=== PATIENT | female | born 1965 | race Caucasian/White ===

== ENCOUNTER 2017-04-24 11:07 | Inpatient (IN) ==
[2017-04-24 11:41] LABS: Basophils # 0.1 10*3/uL (0.0-0.2); Basophils % 0.4 % (0.0-0.8); Eosinophils # 0.1 10*3/uL (0.0-0.87); Eosinophils % 0.7 % (0.00-10.9); Hematocrit 24.5 VOL% (35.7-47.0); Hemoglobin 7.8 GM/DL (12.0-16.0); Immature Granulocytes % 0.4 %; Immature Granulocytes Absolute 0.05 #; Lymphocytes % 8.3 % (21.3-54.2); Mean Corpuscular HGB Conc 31.8 GM/DL (32-36); Mean Corpuscular Hemoglobin 27 PG (27-34); Mean Corpuscular Volume 83.3 FL (87-102); Mean Platelet Volume 10.3 FL (9.6-12.0); Monocytes # 0.8 10*3/uL (0.11-0.8); Monocytes % 6.6 % (1.7-12.7); Neutrophils # 9.7 10*3/uL (1.4-7.4); Neutrophils % 83.6 % (38.7-73.9); Platelet Count 110 T/CUMM (130-400); Red Blood Count 2.94 MC/CUMM (3.8-5.5); Red Cell Distribution Width 17.5 % (9.3-17.3); White Blood Count 11.6 T/CUMM (4-12)
[2017-04-24 12:08] LABS: Blood Urea Nitrogen 34 MG/DL (7-18); Calcium 7.5 MG/DL (8.5-10.1); Glucose 164 MG/DL (74-106); Osmolality,Calculated 294.1 MOS/KG (273-304); Potassium 4.1 MMOL/L (3.5-5.1); Sodium 142 MMOL/L (136-145); Troponin I Only < 0.015 NG/ML (0.00-0.045)
[2017-04-24] MEDS ORDERED: SODIUM CHLORIDE 0.9% 250 ML IV PRN (14:11)
[2017-04-24] MEDS ORDERED: MORPHINE 2 MG/1 ML SYRINGE IV PRN (14:13)
[2017-04-24] MEDS ORDERED: ONDANSETRON 4 MG/2 ML VIAL IV PRN (14:13)
[2017-04-24 14:39] LABS: Hematocrit 24.7 VOL% (35.7-47.0); Hemoglobin 7.7 GM/DL (12.0-16.0)
[2017-04-24] MEDS: SODIUM CHLORIDE 0.9% 1,000 ML IV SCH ×2 (14:52→21:09)
[2017-04-24] MEDS ORDERED: LIDOCAINE 1% 5 ML VIAL ONE (15:03)
[2017-04-24] MEDS ORDERED: PROPOFOL 200 MG/20 ML VIAL IV ONE (15:03)
[2017-04-24] MEDS: PANTOPRAZOLE INJ 200 MG in SODIUM CHLORIDE 0.9% 250 ML IV SCH (21:07)
[2017-04-25 00:43] LABS: Hematocrit 27.7 VOL% (35.7-47.0); Hemoglobin 8.9 GM/DL (12.0-16.0)
[2017-04-25 06:51] LABS: Hemoglobin 9.5 GM/DL (12.0-16.0)
[2017-04-25] MEDS: SODIUM CHLORIDE 0.9% 1,000 ML IV SCH ×3 (07:40→13:57)
[2017-04-25] MEDS ORDERED: DEXTROSE 50% 25 GM/50 ML VIAL IV PRN (13:00)
[2017-04-25] MEDS ORDERED: GLUCAGON 1 MG VIAL IM PRN (13:00)
[2017-04-25] MEDS: PANTOPRAZOLE INJ 200 MG in SODIUM CHLORIDE 0.9% 250 ML IV SCH (15:45)
[2017-04-25] MEDS ORDERED: HYDROmorphone 2 MG/1 ML VIAL IV PRN (15:48)
[2017-04-25] MEDS ORDERED: ceFAZolin 1,000 MG VIAL ONE (15:55)
[2017-04-25] MEDS ORDERED: SODIUM CHLORIDE 0.9% 100 ML IV ONE (15:56)
[2017-04-25] MEDS ORDERED: ceFAZolin 1,000 MG VIAL IM SCH (16:00)
[2017-04-25] MEDS: ceFAZolin 1,000 MG VIAL IV SCH (16:03)
[2017-04-25] MEDS: INSULIN LISPRO 100 UNIT/ML SUBCUT SCH ×2 (16:20→21:27)
[2017-04-25 16:25] LABS: Hematocrit 27.3 VOL% (35.7-47.0); Hemoglobin 8.8 GM/DL (12.0-16.0)
[2017-04-25] MEDS: OCTREOTIDE 1,250 MCG in SODIUM CHLORIDE 0.9% 247.5 ML IV SCH (16:25)
[2017-04-25 17:01] LABS: Hepatitis A Ab IgM Quant 0.03 Index; Hepatitis A Ab IgM Result Negative (Negative); Hepatitis B Core IgM Quant 0.16 Index; Hepatitis B Core IgM Result Negative (Negative); Hepatitis B Surface Ag Quant < 0.10 Index; Hepatitis B Surface Ag Result Negative (Negative); Hepatitis C Virus Ab Quant 0.25 Index; Hepatitis C Virus Ab Result Negative (Negative)
[2017-04-25 17:25] LABS: Albumin 2.8 G/DL (3.4-5.0); Bilirubin,Direct 0.22 MG/DL (0.0-0.20); Bilirubin,Indirect 0.8 MG/DL (0.0-1.0); Total Protein 6.2 G/DL (6.4-8.3)
[2017-04-25] MEDS: PANTOPRAZOLE 40 MG VIAL IV SCH (21:26)
[2017-04-25] MEDS: ATORVASTATIN 40 MG TABLET PO SCH (21:26)
[2017-04-26 00:05] LABS: Hemoglobin 8.6 GM/DL (12.0-16.0)
[2017-04-26] MEDS ORDERED: SODIUM CHLORIDE 0.9% 50 ML IV ONE (00:49)
[2017-04-26] MEDS: SODIUM CHLORIDE 0.9% 1,000 ML IV SCH ×4 (00:53→18:18)
[2017-04-26] MEDS: ceFAZolin 1,000 MG VIAL IV SCH (00:54)
[2017-04-26 04:42] LABS: Albumin 2.8 G/DL (3.4-5.0); Bilirubin,Direct 0.2 MG/DL (0.0-0.20); Bilirubin,Indirect 0.7 MG/DL (0.0-1.0); Bilirubin,Total 0.9 MG/DL (0.2-1.0); Total Protein 6.2 G/DL (6.4-8.3)
[2017-04-26 08:00] LABS: Basophils % 0.6 % (0.0-0.8); Eosinophils # 0.1 10*3/uL (0.0-0.87); Eosinophils % 1.7 % (0.00-10.9); Hematocrit 28.4 VOL% (35.7-47.0); Immature Granulocytes % 0.6 %; Immature Granulocytes Absolute 0.03 #; Lymphocytes # 0.8 10*3/uL (1.4-4.0); Lymphocytes % 15.3 % (21.3-54.2); Mean Corpuscular HGB Conc 31.7 GM/DL (32-36); Mean Corpuscular Hemoglobin 27 PG (27-34); Mean Corpuscular Volume 85.3 FL (87-102); Mean Platelet Volume 10.1 FL (9.6-12.0); Monocytes # 0.3 10*3/uL (0.11-0.8); Monocytes % 5.9 % (1.7-12.7); Neutrophils # 4.1 10*3/uL (1.4-7.4); Neutrophils % 75.9 % (38.7-73.9); Platelet Count 79 T/CUMM (130-400); Red Blood Count 3.33 MC/CUMM (3.8-5.5); White Blood Count 5.4 T/CUMM (4-12)
[2017-04-26 08:23] LABS: Calcium 8.1 MG/DL (8.5-10.1); Osmolality,Calculated 283.5 MOS/KG (273-304); Potassium 4.7 MMOL/L (3.5-5.1)
[2017-04-26 08:25] LABS: Hypochromasia Slight; Macrocytosis 1+; Platelet Estimate Decreased
[2017-04-26] MEDS: INSULIN LISPRO 100 UNIT/ML SUBCUT SCH ×4 (08:28→21:10)
[2017-04-26] MEDS: PANTOPRAZOLE 40 MG VIAL IV SCH ×2 (08:40→20:31)
[2017-04-26] MEDS: METOPROLOL SUCCINATE XL 25 MG TABLET PO SCH (08:40)
[2017-04-26] MEDS: LOSARTAN 25 MG TABLET PO SCH (08:40)
[2017-04-26 09:35] LABS: INR 1.1; PT Patient Result 11.4 SECS; Partial Thromboplastin Time 25.7 SECS (0-40)
[2017-04-26 16:27] LABS: Hematocrit 28.7 VOL% (35.7-47.0)
[2017-04-26] MEDS: OCTREOTIDE 1,250 MCG in SODIUM CHLORIDE 0.9% 247.5 ML IV SCH (16:51)
[2017-04-26] MEDS: ATORVASTATIN 40 MG TABLET PO SCH (20:31)
[2017-04-27 00:46] LABS: Basophils % 0.4 % (0.0-0.8); Eosinophils # 0.1 10*3/uL (0.0-0.87); Eosinophils % 2.8 % (0.00-10.9); Hematocrit 25.2 VOL% (35.7-47.0); Hemoglobin 8.1 GM/DL (12.0-16.0); Immature Granulocytes % 0.4 %; Immature Granulocytes Absolute 0.02 #; Lymphocytes # 1.1 10*3/uL (1.4-4.0); Lymphocytes % 22.8 % (21.3-54.2); Mean Corpuscular HGB Conc 32.1 GM/DL (32-36); Mean Corpuscular Hemoglobin 27 PG (27-34); Mean Platelet Volume 9.9 FL (9.6-12.0); Monocytes # 0.3 10*3/uL (0.11-0.8); Monocytes % 6.3 % (1.7-12.7); Neutrophils # 3.1 10*3/uL (1.4-7.4); Neutrophils % 67.3 % (38.7-73.9); Red Cell Distribution Width 16.8 % (9.3-17.3); White Blood Count 4.6 T/CUMM (4-12)
[2017-04-27 00:47] LABS: Platelet Count 81 T/CUMM (130-400)
[2017-04-27 01:14] LABS: Calcium 7.9 MG/DL (8.5-10.1); Magnesium 1.8 MG/DL (1.8-2.4); Osmolality,Calculated 283.3 MOS/KG (273-304); Potassium 4.1 MMOL/L (3.5-5.1)
[2017-04-27 02:10] LABS: Hypochromasia Slight; Platelet Estimate Decreased
[2017-04-27] MEDS: SODIUM CHLORIDE 0.9% 1,000 ML IV SCH ×3 (03:00→17:36)
[2017-04-27 07:36] LABS: Hematocrit 26.4 VOL% (35.7-47.0); Hemoglobin 8.5 GM/DL (12.0-16.0)
[2017-04-27] MEDS: LOSARTAN 25 MG TABLET PO SCH (08:20)
[2017-04-27] MEDS: METOPROLOL SUCCINATE XL 25 MG TABLET PO SCH (08:20)
[2017-04-27] MEDS: PANTOPRAZOLE 40 MG VIAL IV SCH ×2 (08:21→20:40)
[2017-04-27] MEDS: INSULIN LISPRO 100 UNIT/ML SUBCUT SCH ×4 (08:28→20:41)
[2017-04-27] MEDS ORDERED: DIAZEPAM 5 MG TABLET PO ONE (13:22)
[2017-04-27] MEDS: ATORVASTATIN 40 MG TABLET PO SCH (20:41)
[2017-04-28] MEDS: SODIUM CHLORIDE 0.9% 1,000 ML IV SCH (01:48)
[2017-04-28 06:25] LABS: Basophils % 0.7 % (0.0-0.8); Eosinophils # 0.1 10*3/uL (0.0-0.87); Eosinophils % 2.5 % (0.00-10.9); Hematocrit 27.1 VOL% (35.7-47.0); Hemoglobin 8.8 GM/DL (12.0-16.0); Immature Granulocytes % 0.4 %; Immature Granulocytes Absolute 0.02 #; Lymphocytes # 0.9 10*3/uL (1.4-4.0); Lymphocytes % 19.3 % (21.3-54.2); Mean Corpuscular HGB Conc 32.5 GM/DL (32-36); Mean Corpuscular Hemoglobin 27 PG (27-34); Mean Corpuscular Volume 82.9 FL (87-102); Mean Platelet Volume 10.6 FL (9.6-12.0); Monocytes # 0.3 10*3/uL (0.11-0.8); Monocytes % 6.5 % (1.7-12.7); Neutrophils # 3.1 10*3/uL (1.4-7.4); Neutrophils % 70.6 % (38.7-73.9); Red Blood Count 3.27 MC/CUMM (3.8-5.5); Red Cell Distribution Width 16.8 % (9.3-17.3); White Blood Count 4.5 T/CUMM (4-12)
[2017-04-28 06:26] LABS: Platelet Count 80 T/CUMM (130-400)
[2017-04-28 06:48] LABS: Hypochromasia 1+; Platelet Estimate Decreased
[2017-04-28 06:51] LABS: Calcium 7.8 MG/DL (8.5-10.1); Magnesium 2.1 MG/DL (1.8-2.4); Osmolality,Calculated 280.4 MOS/KG (273-304); Potassium 4.1 MMOL/L (3.5-5.1)
[2017-04-28] MEDS: METOPROLOL SUCCINATE XL 25 MG TABLET PO SCH (08:25)
[2017-04-28] MEDS: LOSARTAN 25 MG TABLET PO SCH (08:25)
[2017-04-28] MEDS: PANTOPRAZOLE 40 MG VIAL IV SCH (08:26)
[2017-04-28] MEDS: INSULIN LISPRO 100 UNIT/ML SUBCUT SCH (08:26)
[2017-04-28] MEDS ORDERED: TICAGRELOR 90 MG TABLET PO SCH (09:00)
[2017-04-28] MEDS ORDERED: PANTOPRAZOLE 40 MG TABLET PO SCH (10:00)
[2017-04-28] MEDS ORDERED: SPIRONOLACTONE 100 MG TABLET PO SCH (10:00)
[2017-04-28 12:31] VITALS: BP 121/59
[2017-04-28] MEDS ORDERED: ASPIRIN EC 81 MG TABLET PO SCH (21:00)
== END 2017-04-28 13:00 | disposition home or self-care (01) | DRG 432 ==
LOC: EDUNIT# → EDBD → N.ED 11:07 → N.EDINP 11:47 → SUATTDRO 11:47 → N.EDINP 13:31 → N.CC 13:36 → N.2E 04-26 17:53
PROVIDERS: ADMIT Internal Medicine; ATTEND Hospitalist
PROC: EGDWEBL (ICD-10-PCS; 2017-04-25 07:35)